=== PATIENT | female | born 1995 | race Asian ===

== ENCOUNTER 2024-04-10 23:48 | Emergency (ER) | payer OTHER ==
[~2024-04-10] VITALS: Ht 149.9 cm; Wt 55.8 kg
[2024-04-10 23:58] VITALS: BP_SYST 101; PULSE 64; RESP 18; TEMP 98.4; O2SAT 98
[2024-04-11] MEDS ORDERED: CLIN-142 PO (00:12)
== END 2024-04-11 00:19 | disposition home or self-care (01) ==
LOC: SED 23:48
DX: L02.411 Cutaneous abscess of right axilla (principal); Z79.2 Long term (current) use of antibiotics
CPT/HCPCS: 99283